=== PATIENT | male | born 1980 | race African-American/Black ===

== ENCOUNTER 2018-03-23 18:53 | Emergency (ER) | payer OTHER ==
[~2018-03-23] VITALS: Ht 182.9 cm; Wt 74.8 kg
[~2018-03-23 18:53] MED LIST: CYCLOBENZAPRINE5 MG PO; MOBIC15 MG PO; NORCO 5-325 TA1 EACH PO
[2018-03-23] MEDS ORDERED: IBUPROFEN 600600 M1 PO (21:57)
[2018-03-23] MEDS ORDERED: SENNA-DOCUSATE1 EACH PO (21:57)
[2018-03-23] MEDS ORDERED: FLEXERIL PO (21:57)
[2018-03-23] MEDS ORDERED: NORCO 5-325 TA1 EACH PO (21:57)
[2018-03-23 22:12] VITALS: BP 131/79
== END 2018-03-23 22:13 | disposition home or self-care (01) ==
LOC: ER 18:53
DX: S29.012A Strain of muscle and tendon of back wall of thorax, initial encounter (principal); F17.210 Nicotine dependence, cigarettes, uncomplicated; X50.0XXA Overexertion from strenuous movement or load, initial encounter; Y92.89 Other specified places as the place of occurrence of the external cause; Y93.89 Activity, other specified; Y99.8 Other external cause status

== ENCOUNTER 2018-07-17 04:12 | Emergency (ER) | payer OTHER ==
[~2018-07-17] VITALS: Ht 182.9 cm; Wt 74.8 kg
[~2018-07-17 04:12] MED LIST changes: +FLEXERIL PO; +IBUPROFEN 600600 M1 PO; +SENNA-DOCUSATE1 EACH PO
[2018-07-17] MEDS ORDERED: VALIUM5 MG PO (05:24)
[2018-07-17] MEDS ORDERED: NORCO 5-325 TA1 EACH PO (05:24)
[2018-07-17] MEDS ORDERED: MOBIC15 MG PO (05:24)
== END 2018-07-17 05:40 | disposition home or self-care (01) ==
LOC: ER 04:12
DX: S39.012A Strain of muscle, fascia and tendon of lower back, initial encounter (principal); F17.210 Nicotine dependence, cigarettes, uncomplicated; G89.29 Other chronic pain; X50.0XXA Overexertion from strenuous movement or load, initial encounter; Y92.89 Other specified places as the place of occurrence of the external cause; Y99.0 Civilian activity done for income or pay

== ENCOUNTER 2018-09-20 16:55 | Emergency (ER) | payer OTHER ==
[~2018-09-20] VITALS: Ht 182.9 cm; Wt 74.8 kg
[~2018-09-20 16:55] MED LIST changes: +VALIUM5 MG PO
[2018-09-20 17:46] VITALS: BP 143/96
== END 2018-09-20 17:47 | disposition left against medical advice (07) ==
LOC: ER 16:55
DX: R51 Headache (principal); M54.5 Low back pain; G89.29 Other chronic pain; F17.210 Nicotine dependence, cigarettes, uncomplicated

== ENCOUNTER 2018-10-27 02:00 | Emergency (ER) | payer OTHER ==
[~2018-10-27] VITALS: Ht 182.9 cm; Wt 77.1 kg
[2018-10-27 02:01] VITALS: BP 150/100
[2018-10-27 02:46] LABS: URINE BILIRUBIN NEGATIVE (Negative); URINE BLOOD TRACE (Negative); URINE CLARITY SL CLOUDY; URINE COLOR YELLOW; URINE GLUCOSE-RANDOM* NEGATIVE (Negative); URINE KETONES NEGATIVE (Negative); URINE NITRITE-REFLEX NEGATIVE (Negative); URINE PROTEIN (DIPSTICK) TRACE (Negative); URINE SPECIFIC GRAVITY 1.025 (1.005-1.035); URINE UROBILINOGEN 0.2 E.U./dl (0.2-1.0)
[2018-10-27 02:50] LABS: URINE LEUKOCYTES-REFLEX 1+ (Negative)
[2018-10-27 03:11] LABS: BACTERIA-REFLEX 1-9 Few /HPF (None Seen); CASTS None Seen /LPF (None Seen); CRYSTALS None Seen /LPF (None Seen); MUCUS 0-3 Light strn/LPF (None Seen); SQUAMOUS 4-10 Moderate /LPF (0-3); TRANSITIONAL EPITHEL CELL 0-3 Few /LPF (None Seen); URINE RBC 0-2 Rare /HPF (0-2); URINE WBC-REFLEX 6-15 Few /HPF (0-5)
== END 2018-10-27 02:51 | disposition left against medical advice (07) ==
LOC: ER 02:00
PROVIDERS: Emergency Medicine
DX: M54.5 Low back pain (principal); G89.29 Other chronic pain; F17.210 Nicotine dependence, cigarettes, uncomplicated